=== PATIENT | male | born 1940 | race Caucasian/White ===

== ENCOUNTER 2016-11-12 09:42 | Outpatient (CLI) | payer OTHER ==
[2013-06-08 11:56] VITALS: BP 160/72
--- NOTE | 2016-11-12 21:42 | Diagnostic Imaging Report ---
SAV BUITRAGO [facility] [address] [facility] [address] [address] Report Submission Date: November 12, 2016 2:27:30 PM CDT Patient Study Name: PETER MONSIVAIS Date: November 12, 2016 10:03:37 AM CDT Modality Type: CR Gender: M Description: LOWER EXTREMITY : 38 Institution: [facility] Physician: SAV BUITRAGO Right knee - three views Clinical history: Pain for approximately 3 months. Findings: Examination right knee in AP, lateral and sunrise views demonstrates degenerative changes with slight narrowing of the medial joint space and chondrocalcinosis. There is no evident fracture or joint effusion. Impression: 1. Degenerative changes and chondrocalcinosis. Electronically signed on November 12, 2016 2:27:30 PM CDT by: Dajuan GABRIEL
== END 2016-11-12 09:43 ==
LOC: RAD 09:42
PROVIDERS: ATTEND Family Medicine
DX: M25.561 Pain in right knee (principal)
CPT/HCPCS: 73562